=== PATIENT | female | born 1950 | race Caucasian/White ===

== ENCOUNTER 2020-04-06 06:26 | Observation (INO) ==
--- NOTE | 2020-04-01 08:52 | ANES ---
Anesthesia Pre Procedure Eval HOME MEDICATIONS acetaminophen 650 mg tablet,extended release 650 mg PO Q12H PRN 02/13/20 [Last Taken Unknown] alendronate 70 mg tablet 70 mg PO QWEEK tab 02/13/20 [Last Taken Unknown] amlodipine 5 mg tablet 5 mg PO DAILY tab 02/13/20 [Last Taken Unknown] aspirin 81 mg tablet,delayed release 81 mg PO DAILY 02/13/20 [Last Taken Unknown] atenolol 25 mg tablet 25 mg PO DAILY tab 02/13/20 [Last Taken Unknown] atorvastatin 20 mg tablet 20 mg PO DAILY tab 02/13/20 [Last Taken Unknown] cholecalciferol (vitamin D3) 50 mcg (2,000 unit) capsule 50 mcg PO DAILY 02/13/20 [Last Taken Unknown] hydrochlorothiazide 25 mg tablet 25 mg PO DAILY tab 02/13/20 [Last Taken Unknown] levothyroxine 75 mcg tablet 75 mcg PO DAILY tab 02/13/20 [Last Taken Unknown] multivitamin 1 tab PO DAILY 02/13/20 [Last Taken Unknown] omega 6-rmr-ptk-fish oil 1,000 mg (120 mg-180 mg) capsule 1 cap PO DAILY 02/13/20 [Last Taken Unknown] venlafaxine 75 mg tablet 75 mg PO DAILY tab 02/13/20 [Last Taken Unknown] methylphenidate HCl 10 mg tablet 10 mg PO DAILY 03/25/20 [Last Taken Unknown] Allergies/Adverse Reactions: Allergies Allergy/AdvReac Type Severity Reaction Status Date / Time horse serum AdvReac Mild Redness, Uncoded 03/25/20 15:49 swelling mold AdvReac Mild congestion Uncoded 03/25/20 15:49 tree pollen AdvReac Mild Congestion Uncoded 03/25/20 15:49 - Planned Procedure Planned Procedure: Right Total Knee Arthroplasty Medication List Reviewed:: Yes Allergies Verified: Yes Medical History (Last Reviewed 03/25/20 @ 15:38 by Konrad Kelly MA) Allergies Arthritis Hypertension Joint pain Major depression Osteoporosis Scoliosis Sinusitis Sleep apnea Thyroid disease Surgical History (Last Reviewed 04/01/20 @ 08:51 by Rj Molina CRNA) History of D&C History of cholecystectomy History of hernia repair History of shoulder replacement History of tonsillectomy Family History (Last Reviewed 04/01/20 @ 08:51 by Rj Molina CRNA) Mother Multiple sclerosis Father Hypertension A-fib - Family Anesthesia History Family History:: no untoward family reactions to anesthesia - Airway/Neck/Teeth Teeth Condition: intact - Respiratory Smoking Status: Never smoker Sleep Apnea currently treated: Yes Sleep Apnea by current assessment: Yes - Cardiovascular Cardiac History: hypertension Tolerate Activity: Fair - Gastrointestinal NPO since: instructed npo after mn - Anesthesia Assessment and Plan ASA Class: PS, III Anesthesia Type Plan: Spinal - adductor canal block
[~2020-04-06 06:26] MED LIST: MORPHINE SULFATE 15 MG TABLET.SA PO PRN; ROPIVACAINE HCL/PF 100 MG, EPINEPHrine 0.2 MG, KETOROLAC TROMETHAMINE 30 MG in NORMAL S... IJ PRN; TRANEXAMIC ACID 1,000 MG in NORMAL SALINE 100 ML IV PRN; ceFAZolin SODIUM 1 GM VIAL IV PRN
[2020-04-06] MEDS: RINGER'S SOLUTION,LACTATED 1,000 ML IV PRN ×2 (06:55→09:36)
[2020-04-06] MEDS ORDERED: ceFAZolin SODIUM 1 GM VIAL ONE (06:57)
[2020-04-06] MEDS ORDERED: HYDROmorphone HCL 2 MG/ML VIAL IV PRN (07:15)
[2020-04-06] MEDS ORDERED: NALOXONE HCL 0.4 MG/ML VIAL IV PRN (07:15)
[2020-04-06] MEDS ORDERED: diphenhydrAMINE HCL 50 MG/ML VIAL IV PRN ×2 (07:15→09:33)
[2020-04-06] MEDS ORDERED: PROCHLORPERAZINE EDISYLATE 5 MG/ML VIAL IV PRN (07:15)
[2020-04-06] MEDS ORDERED: ONDANSETRON HCL/PF 2 MG/ML VIAL IV PRN ×2 (07:15→09:33)
[2020-04-06] MEDS ORDERED: LIDOCAINE HCL 20 ML VIAL ONE (07:35)
[2020-04-06] MEDS ORDERED: fentaNYL CITRATE/PF 50 MCG/ML AMPUL ONE (07:36)
[2020-04-06] MEDS ORDERED: ONDANSETRON HCL/PF 2 MG/ML VIAL ONE (07:36)
[2020-04-06] MEDS ORDERED: PROPOFOL VIAL IV ONE (07:37)
[2020-04-06] MEDS ORDERED: BUPIVACAINE HCL/EPINEPHRINE 50 ML VIAL ONE (07:37)
[2020-04-06] MEDS ORDERED: DEXTROSE 5%-LACTATED RINGERS 1,000 ML IV PRN (09:33)
[2020-04-06] MEDS ORDERED: ACETAMINOPHEN 500 MG TABLET PO PRN (09:33)
[2020-04-06] MEDS ORDERED: MORPHINE SULFATE 2 MG/ML DISP.SYRIN IV PRN (09:33)
[2020-04-06] MEDS ORDERED: MAG HYDROX/ALUMINUM HYD/SIMETH 30 ML UDC PO PRN (09:33)
[2020-04-06] MEDS ORDERED: ZOLPIDEM TARTRATE 5 MG TABLET PO PRN (09:33)
[2020-04-06] MEDS ORDERED: MAGNESIUM HYDROXIDE 30 ML UDC PO PRN (09:33)
--- NOTE | 2020-04-06 09:33 | OR ---
Operative Report - Dictated Report Narrative: Date: 04/06/2020 Preoperative diagnosis: Right knee degenerative joint disease. Postoperative diagnosis: Right knee degenerative joint disease. Procedure: Right total knee arthroplasty. Surgeon: Bill Chun M.D. Director Informatics: Curt Berkowitz PA-C (provided and essential set of skilled, educated hands that assisted with transfer, positioning, prepping, draping, manipulation, retraction, placement of jigs, injection, insertion of implants, irrigation, closure wounds, and dressings all of which could not be performed by the available surgical crew) Anesthesia: Spinal with regional block and local periarticular joint injection. Complications: None Specimens: Bone. Estimated blood loss: Minimal. Tourniquet time: 90 Minutes at 325 millimeters of mercury. Retained implants: Depuy Attune size 6 right lugged cemented posterior stabilized femoral component. Size 6 fixed-bearing cemented tibial platform. 6 by 5 millimeter posterior stabilized cross-linked tibial insert. 38 millimeter medialized patella button. Indications: Mrs. Mccray is a 69-year-old female who has had longstanding right knee pain and arthrosis. This patient was followed in my clinic for period of time with significant complaints of right knee pain consistent with arthritic changes. She had failed conservative measures including, but not limited to, activity modification, passage of time, medications, and other conservative measures. Patient wished to proceed with surgical treatment. The risks, benefits, and alternatives were discussed in clinic. The risks of , blood clots, bleeding, infection, nerve/tendon blood vessel/ injury, malposition of components, intraoperative fracture, postoperative limited range of motion, persistent pain, failure of components, and need for additional procedures. Patient wished to proceed consent was obtained after answering all questions. Procedure: After marking the correct extremity on the floor, the patient was taken to the operating room. A timeout was performed. IV antibiotics consisting of Ancef were administered prior to the procedure. A regional followed by spinal anesthetic was induced by anesthesia, per my request, on the operative table with all bony prominences well-padded. Lambert catheter was placed, and a bump was placed under the operative side buttock. SCDs and REFUGIO hose were utilized on the nonoperative leg. A well-padded tourniquet was applied to the operative thigh. The operative leg was then pre-scrubbed with alcohol, prepped, and draped in a standard sterile fashion. After exsanguinating the extremity with an Esmarch bandage, the tourniquet was inflated. After marking out the anterior knee for standard incision centered over the patella, the skin was incised and dissected down to the joint retinaculum. The joint retinaculum was marked out as well as the horizontal axis of the patella, and a standard medial parapatellar arthrotomy was then made. The most proximal aspect of the quadriceps tendon and the patella tendon insertion were protected from release. A partial synovectomy was performed as well as a resection of the infrapatellar fat pad. The distal femoral fat pad proximal to the trochlea was also resected using cautery. The soft tissues were elevated off the medial aspect of the proximal tibia using a Honeycutt elevator ensuring that we did not transect the medial collateral ligament. Upon initial evaluation range of motion was approximately 0 degrees to 130 degrees of flexion. There were signs of advanced arthrosis in the lateral and patellofemoral greater than medial joint spaces. There were large marginal osteophytes which were removed with a rongeur. The knee was hyperflexed and the patella was tucked laterally. Protecting the surrounding soft tissues with Homans, an entry drill was placed down the femoral canal using Whitesides line for guidance into the entry point. The intramedullary femoral alignment burt was utilized in order to cut the distal femur in 5 degrees of valgus resecting 10 millimeters of bone. Next the distal femur was sized to a size 6. A posterior referencing guide was utilized to place the distal femoral cutting block in 3 degrees of external rotation. This was pinned into place. The rotation was confirmed both visually and based on anatomic landmarks. The 4 in 1 cutting jig of the appropriate size was utilized in order to make all bony cuts. The cullen wing was used to ensure no notching. Retractors were utilized in order to protect surrounding soft tissues. This cut did not result in any excessive notching. We then cut the box centered over the distal femur. This allowed for resection of the anterior and posterior cruciate ligaments. I then turned my attention to the preparation of the tibia. Using an extra medullary tibial alignment burt, 3 millimeters of bone was resected off the medial articular surface. This was made perpendicular to the mechanical axis of the joint with the alignment burt centered over the ankle mortise. The alignment burt was checked and was noted to be parallel to the mechanical axis, centered over the medial one third of the tibial tubercle, paralleling the anterior surface of the tibia. We then turned our attention to the remaining meniscus and soft tissues. These were removed while protecting the surrounding ligaments and soft tissues. The marginal osteophytes off the anterior, posterior, medial, lateral aspects of the femur and tibia were removed. The tibia was sized out to a size 6. Next the tibia was drilled and punched in an externally rotated position. Next the trial femur and a series of tibial inserts were utilized in order to allow for full extension and maximal flexion. It was found that a 5 millimeter insert gave the best range of motion and stability at multiple flexion points as well as at full extension there was less than 2 mm of gapping both medially and laterally. There is minimal anterior translation with the knee at 90 degrees of flexion and no signs of being able to dislocate the knee. The patella was then prepared. The initial thickness was 25 millimeters. This was reamed down to 15 millimeters parallel to the anterior surface of the patella. It was sized out to a size 38 medialized patella button. This was then drilled and trialed. Without any medial restraint the patella tracked appropriately and did not sublux or dislocate. At this point, it was felt these were the appropriate sized implants, and all trials were removed. The standard periarticular joint injection consisting of ropivacaine, Toradol, and epinephrine were injected into the periarticular joint tissues. The bony surfaces were thoroughly irrigated with a pulsatile-suction saline irrigation device. A bone plug from the prior resected anterior chamfer cut was placed into the drill hole at the distal femur. The bony surfaces were then dried in preparation for placement of the implants. The cement was vacuum mixed per the supervisor gluing's instructions. The cement was placed on the dry bony surfaces and posterior aspect of the implants. The implants were impacted into place, removing all extruded cement. At this point anesthesia administered tranexamic acid per protocol intravenously. The knee was placed in extension with axial loading with the trial insert while the cement cured. Once the cement cured, all remaining extruded cement was removed. The knee was placed through a range of motion with the trial insert to ensure appropriate range of motion and stability. Final range of motion was approximately 0 to 130 degrees. The knee was again thoroughly irrigated with pulsatile saline lavage. The final polyethylene insert was then impacted into place ensuring no retained soft tissues. The remaining periarticular joint injection was injected. A medium Hemovac drain was placed exiting superior laterally. The knee was then placed over a triangle and the arthrotomy was closed with interrupted #1 Vicryl after thoroughly irrigating the joint. The deep and subcutaneous tissues were closed with interrupted 0 and 3-0 Vicryl respectively. Skin was closed with a running subcutaneous 3-0 Monocryl and Prineo Dermabond dressing. 4 x 4's, Sof-Rol, and a full leg James wrap were applied. All sponge, needle, blade, and instrument counts were correct prior to closing the wounds. Postoperative condition: The patient was awoken and transferred to the postanesthesia care unit in stable condition. Plan is to be admitted to the inpatient medical/surgical floor postoperatively for 24 hours of IV antibiotics, physical therapy, occupational therapy, and medical comanagement. Patient will be weightbearing as tolerated with range of motion as tolerated. DVT prophylaxis will be with SCDs, REFUGIO hose, and pharmacological anticoagulation. Anticipated hospital stay is approximately 1-3 days.
[2020-04-06] MEDS ORDERED: MUCINEX D PO PRN (09:35)
--- NOTE | 2020-04-06 09:54 | ANES ---
Post Anesthesia Discharge - Transfer of Care Transfer of Care handoff given to nurse: Yes - Discharge from PACU Discharge from PACU when meets criteria: Yes - Discharge to ASU Discharge to ASU-no complications/pt stable: Yes
--- NOTE | 2020-04-06 09:56 | ANES ---
Anesthesia Procedure Note Procedure Note: ANESTHESIA PROCEDURE NOTE Date of Procedure: 04/06/2020. Time of procedure: 0745. Performed by: Karan Mcrae CRNA Collections Attorney: None. Preprocedure diagnosis: Right knee degenerative joint disease. Post procedure diagnosis: Same. Procedure: Right ultrasound guided adductor canal block for postoperative analgesia. Indications: The patient is a 69-year-old female, requesting right ultrasound- guided abductor canal nerve block for postoperative analgesia related to right total knee arthroplasty. Findings: See below. Details of the procedure: The tissue over the intended target site was cleansed with ChloraPrepand draped in a sterile fashion. 2 ml Lidocaine 1 % was infiltrated to the skin and subcutaneous tissue at the intended target site. Under sterile technique and ultrasound guidance a 20-gauge block needle was inserted through the right sartorius muscle to the saphenous nerve just anterior and medial to the superficial femoral artery and vein. 15 mL's of 0.5% bupivacaine was injected after negative aspiration for blood. Needle tip and spread of local anesthetic surrounding the saphenous nerve was observed throughout the injection with real time ultrasound visualization. The needle was then removed intact. No complications were noted. The images were retained in the Hospital medical database. EBL: Minimal. Fluids: N/A. Specimen: N/A. Post procedure condition: The patient tolerated the procedure well. No complications were noted. Thank you for this consultation. Karan Mcrae CRNA
--- NOTE | 2020-04-06 10:52 | ANES ---
Post Anesthesia Assessment - Vital Signs Vitals: Last Vital Signs Temp 36.5 C 04/06/20 10:05 Pulse 65 04/06/20 10:36 Resp 16 04/06/20 10:05 BP 109/66 04/06/20 10:36 Pulse Ox 92 L 04/06/20 10:36 Airway Patency: Normal - Mental Status Level Of Consciousness: Awake - Pain Level Pain Score: 0 - N/V Assessment Nausea/Vomiting Presence: None Dehydration:: No
[2020-04-06] MEDS: KETOROLAC TROMETHAMINE 15 MG/ML VIAL IV SCH ×3 (11:14→22:54)
[2020-04-06] MEDS: ceFAZolin SODIUM 1 GM in DEXTROSE 5 % IN WATER 100 ML IV SCH ×4 (11:54→17:32)
[2020-04-06] MEDS: VENLAFAXINE HCL 75 MG TABLET PO SCH (20:36)
[2020-04-06] MEDS ORDERED: SENNOSIDES/DOCUSATE SODIUM 1 TAB TABLET PO SCH (21:00)
[2020-04-06] MEDS ORDERED: ROSUVASTATIN CALCIUM 10 MG TABLET PO SCH (21:00)
[2020-04-07] MEDS: ceFAZolin SODIUM 1 GM in DEXTROSE 5 % IN WATER 100 ML IV SCH ×2 (00:07)
[2020-04-07] MEDS: oxyCODONE HCL/ACETAMINOPHEN 1 TAB TABLET PO PRN ×3 (03:01→12:01)
[2020-04-07] MEDS: KETOROLAC TROMETHAMINE 15 MG/ML VIAL IV SCH ×2 (05:26→10:45)
[2020-04-07 06:35] LABS: Hematocrit 33.1 % (37.0-47.0); Hemoglobin 10.3 gm/dL (12.5-16.0); Mean Cell Volume 85.5 fl (78-100); Mean Corpuscular Hemoglobin 26.6 pg (27-31); Mean Corpuscular Hgb Conc 31.1 g/dl (32-36); Mean Platelet Volume 9.4 fl (8-12.5); Platelet Count 162 K/mm3 (150-450); Red Blood Count 3.87 M/mm3 (4.2-5.4); Red Cell Distribution Width 13.9 % (11.5-14.0); White Blood Count 5.2 K/mm3 (4.0-10.5)
[2020-04-07 06:53] LABS: Anion Gap 10.8 mmol/L (6.8-13.8); BUN/Creatinine Ratio 17.5 (9.0-21.6); Calcium * 8.3 mg/dL (7.9-10.9); Carbon Dioxide 28.8 mmol/L (24-32.6); Estimated Creat Clear 46.6; Potassium 3.6 mmol/L (3.4-4.6)
[2020-04-07] MEDS ORDERED: LEVOTHYROXINE SODIUM 75 MCG TABLET PO SCH (07:00)
[2020-04-07] MEDS: VENLAFAXINE HCL 75 MG TABLET PO SCH (08:21)
--- NOTE | 2020-04-07 08:33 | DS ---
(1) Status post right knee replacement Problem: Acute (2) Hypothyroid Problem: Chronic (3) Hypertension Problem: Chronic (4) Hyperlipidemia Problem: Chronic (5) Osteoporosis Problem: Chronic (6) Sleep apnea Problem: Chronic (7) Depression Problem: Chronic Date of Discharge:: 04/07/20 Hospital Course: Mrs. Mccray was admitted to the floor after undergoing right total knee arthroplasty. Tolerated this well. Was admitted to the floor postoperatively for 24 hours of IV antibiotics, pain control, medical comanagement, and occupational and physical therapy. OT and PT were consulted to assist with activities of daily living and ambulation. Was made weightbearing as tolerated with range of motion as tolerated. Pain was initially controlled with IV regimen. This was transitioned to oral once tolerating a by mouth intake. Was resumed on home diet and medications. A Lambert catheter was inserted in the operating room which was discontinued by postoperative day 1. A drain was placed intraoperatively into the knee which was discontinued on postoperative day 1. Lovenox, SCDs, and REFUGIO hose were utilized for DVT prophylaxis. Vital signs remained stable to the hospital course. Labs were obtained which showed a final hemoglobin of 10.3 grams. BMP was reviewed and was stable. Physical examination throughout the hospital course showed an extremity that had sensation that was intact to light touch, palpable pulses, a benign wound, motor intact to the toes, ankle, and knee. Knee range of motion was approximately 5 degrees to 60 degrees. Once an oral pain regimen was tolerated and physical therapy goals were met, it was felt that they were stable for discharge to home. Instructions: Continue with weightbearing as tolerated and range of motion as tolerated. It is okay to shower and get the wound wet as long as there is no drainage from the wound. Do not bathe or soak the wound. If there is any drainage from the wound keep the wound clean and dry and cover with dry gauze and tape. Change every 2- 3 days as needed if there is any drainage. Cover wound while showering if there is any drainage. Continue with physical therapy. Resume home diet. Report any fever over 101.5 Fahrenheit, uncontrolled pain, increased drainage, foul odor of drainage, new or increased calf pain or shortness of breath, or any other significant complaints. A 325mg daily aspirin will be started after finishing anticoagulation if not allergic. Continue with REFUGIO hose on the operative extremity until instructed otherwise. No driving until instructed otherwise. Follow up in approximately 2-3 weeks. Procedures Performed: see notes below List Procedures: Right total knee arthroplasty Results and Findings: Lab Pending Results 04/07/20 06:30: WBC 5.2, RBC 3.87 L, Hgb 10.3 L, Hct 33.1 L, MCV 85.5, MCH 26.6 L, MCHC 31.1 L, RDW 13.9, Plt Count 162, MPV 9.4 04/07/20 06:30: Sodium 139, Plasma Sodium 139, Potassium 3.6, Chloride 103, Carbon Dioxide 28.8, Anion Gap 10.8, BUN 17, Creatinine 0.97, Est GFR (Non-Af Amer) 61, BUN/Creatinine Ratio 17.5, Random Glucose 107, Calcium 8.3 Discharge Location: Home Disposition: Home self-care Condition: Good Discharge Activity: Activity as tolerated, Weight bearing Discharge Diet: General/regular food Referrals: Antwon Shook MD [Primary Care Provider] - Additional Patient Instructions (free text): Physical Therapy appointment at [facility] on April 09 at 1:00pm. Please fax demographics and PT order to [phone]. Follow up [facility] appointment on MondayApril 28 at 1:00pm. Prescriptions (Any new or edited meds): Enoxaparin Sodium [Lovenox] 40 mg SC Q24H #7 disp.syrin Transmission Status: Pending to [facility] #[id number] oxyCODONE HCL/ACETAMINOPHEN [Percocet 5 MG/325 MG] 1 - 2 tab PO Q4H PRN #50 tab PRN Reason: Moderate Pain (Pain Scale 4-6) Transmission Status: Sent to [facility] #[id number] Sennosides/Docusate Sodium [Senokot-S] 2 tab PO HS #60 tab Transmission Status: Pending to [facility] #[id number] Complete Home Medications List: Complete Home Medication List: alendronate 70 mg tablet 70 mg PO QWEEK tab 02/13/20 amlodipine 5 mg tablet 5 mg PO DAILY tab 02/13/20 atenolol 25 mg tablet 25 mg PO DAILY tab 02/13/20 atorvastatin 20 mg tablet 20 mg PO DAILY tab 02/13/20 cholecalciferol (vitamin D3) 50 mcg (2,000 unit) capsule 50 mcg PO DAILY 02/13/20 hydrochlorothiazide 25 mg tablet 12.5 mg PO DAILY tab 02/13/20 levothyroxine 75 mcg tablet 75 mcg PO DAILY tab 02/13/20 multivitamin 1 tab PO DAILY 02/13/20 omega 0-kdv-uxz-fish oil 1,000 mg (120 mg-180 mg) capsule 1 cap PO DAILY 02/13/20 venlafaxine 75 mg tablet 75 mg PO BID tab 02/13/20 methylphenidate HCl 10 mg tablet 10 mg PO DAILY 03/25/20 Aspirin 325 mg PO BID PRN 04/06/20 Potassium Chloride [Klor-Con M10] 10 meq PO DAILY 04/06/20 guaiFENesin [Mucinex] 600 mg PO DAILY PRN 04/06/20 Enoxaparin Sodium [Lovenox] 40 mg SC Q24H #7 disp.syrin 04/07/20 Sennosides/Docusate Sodium [Senokot-S] 2 tab PO HS #60 tab 04/07/20 oxyCODONE HCL/ACETAMINOPHEN [Percocet 5 MG/325 MG] 1 - 2 tab PO Q4H PRN #50 tab 04/07/20 Amb Orders for Discharge: PT Evaluation and Treatment* Facility: [facility], Location: Rehabilitation Services
[2020-04-07] MEDS ORDERED: ENOXAPARIN SODIUM 40 MG/0.4 ML SYRG SC SCH (08:34)
[2020-04-07] MEDS ORDERED: MULTIVITAMINS 1 CAP CAPSULE PO SCH (09:00)
[2020-04-07] MEDS ORDERED: POTASSIUM CHLORIDE 10 MEQ TABLET.SA PO SCH (09:00)
[2020-04-07] MEDS ORDERED: CHOLECALCIFEROL 1,000 UNIT CAPSULE PO SCH (09:00)
[2020-04-07] MEDS ORDERED: METHYLPHENIDATE HCL 5 MG TABLET PO SCH (09:00)
[2020-04-07] MEDS ORDERED: HYDROCHLOROTHIAZIDE 12.5 MG CAPSULE PO SCH (09:00)
[2020-04-07] MEDS ORDERED: ATENOLOL 25 MG TABLET PO SCH (09:00)
[2020-04-07] MEDS ORDERED: amLODIPine BESYLATE 5 MG TABLET PO SCH (09:00)
[2020-04-07] MEDS ORDERED: OMEGA-3 FATTY ACIDS 1 CAP CAPSULE PO SCH (09:00)
[2020-04-07 14:12] VITALS: BP 128/58
== END 2020-04-07 14:24 | disposition home or self-care (01) ==
LOC: SUR 06:26 → INTOOBSV 10:13 → MS 10:13
PROVIDERS: ADMIT Orthopaedic Surgery; ATTEND Orthopaedic Surgery